=== PATIENT | male | born 2000 | race American Indian/Alaskan Native ===

== ENCOUNTER 2021-07-04 15:17 | Emergency (ER) | payer OTHER ==
--- NOTE | 2021-07-04 16:28 | XRay Report ---
XR chest routine 2V INDICATION / CLINICAL INFORMATION: cough fever COMPARISON: 08/02/2011 FINDINGS: SUPPORT DEVICES: None. HEART / MEDIASTINUM: No significant abnormality. LUNGS / PLEURA: Lungs are clear. Costophrenic sulci are sharp. No pneumothorax. ADDITIONAL FINDINGS: No significant additional findings. IMPRESSION: 1. No acute findings. Signer Name: Wade Pereira MD Signed: 07/04/2021 4:24 PM Workstation Name: [id number]
--- NOTE | 2021-07-04 17:41 | Emergency Department Report ---
ED General Adult HPI - General Chief complaint: Upper Respiratory Infection Stated complaint: CHEST PAIN/THROAT BODY ACHES Time Seen by Provider: 07/04/21 15:54 Source: patient Mode of arrival: Ambulatory Limitations: No Limitations - History of Present Illness Initial comments: Patient 21-year-old male who presents with and child for similar symptoms patient states he went to a concert 1 week ago and he and both developed URI symptoms concern for COVID. There is no fevers or chills there is however congestion head congestion productive cough that is clear. Symptoms are exacerbated by environmental exposure. Symptoms are relieved by nothing tried. Patient does not have history of asthma or bronchitis. There is been no fevers or chills to this point. Symptoms are rated at 4/10 for cough. Patient has not COVID vaccinated. Severity scale (0 -10): 0 - Related Data Home Medications Medication Instructions Recorded Confirmed Last Taken Albuterol Sulfate [Albuterol 0.63%] 0.63 mg IH TID PRN 07/05/13 07/04/21 05/30/13 Albuterol Sulfate [Ventolin HFA] 2 puff IH Q4H PRN 07/05/13 07/04/21 05/30/13 Methylphenidate HCl [Concerta] 54 mg PO QAM 07/05/13 07/04/21 07/05/13 08:00 Montelukast [Singulair] 10 mg PO QPM 07/05/13 07/04/21 05/28/13 Previous Rx's Medication Instructions Recorded Last Taken Type Albuterol Mdi (or & Nicu Only) 2 puff IH QID PRN #8.5 gram 07/04/21 Unknown Rx [ProAir HFA Inhaler] dexAMETHasone [Decadron] 4 mg PO BID 5 Days #10 tablet 07/04/21 Unknown Rx Allergies Allergy/AdvReac Type Severity Reaction Status Date / Time No Known Allergies Allergy Verified 07/04/21 16:25 ED Review of Systems ROS: Stated complaint: CHEST PAIN/THROAT BODY ACHES Other details as noted in HPI Constitutional: malaise. denies: chills, fever Eyes: denies: eye pain, eye discharge, vision change ENT: congestion. denies: ear pain, throat pain Respiratory: cough. denies: shortness of breath, wheezing Cardiovascular: denies: chest pain, palpitations Endocrine: no symptoms reported Gastrointestinal: denies: abdominal pain, nausea, vomiting, diarrhea Genitourinary: denies: urgency, dysuria Musculoskeletal: denies: back pain, joint swelling, arthralgia Skin: denies: rash, lesions Neurological: denies: headache, weakness, paresthesias, vertigo Psychiatric: denies: anxiety, depression Hematological/Lymphatic: denies: easy bleeding, easy bruising ED Past Medical Hx - Past Medical History Previous Medical History?: Yes Hx Asthma: Yes Additional medical history: adhd combination - Surgical History Past Surgical History?: No - Social History Smoking Status: Never Smoker Substance Use Type: None - Medications Home Medications: Home Medications Medication Instructions Recorded Confirmed Last Taken Type Albuterol Sulfate [Albuterol 0.63%] 0.63 mg IH TID PRN 07/05/13 07/04/21 05/30/13 History Albuterol Sulfate [Ventolin HFA] 2 puff IH Q4H PRN 07/05/13 07/04/21 05/30/13 History Methylphenidate HCl [Concerta] 54 mg PO QAM 07/05/13 07/04/21 07/05/13 08:00 History Montelukast [Singulair] 10 mg PO QPM 07/05/13 07/04/21 05/28/13 History Albuterol Mdi (or & Nicu Only) 2 puff IH QID PRN #8.5 gram 07/04/21 Unknown Rx [ProAir HFA Inhaler] dexAMETHasone [Decadron] 4 mg PO BID 5 Days #10 tablet 07/04/21 Unknown Rx ED Physical Exam - General Limitations: No Limitations General appearance: alert, in no apparent distress - Head Head exam: Present: normocephalic, normal inspection - Eye Eye exam: Present: normal appearance, EOMI Pupils: Present: normal accommodation - ENT ENT exam: Present: normal orophraynx, mucous membranes moist, TM's normal bilaterally, normal external ear exam - Expanded ENT Exam Expanded Throat exam: Positive: other (Uvula midline no exudate no lesions no stridor no wheezing ). Negative: tonsillar erythema, tonsillomegaly, tonsillar exudate, R peritonsillar mass, L peritonsillar mass - Neck Neck exam: Present: normal inspection - Respiratory Respiratory exam: Present: normal lung sounds bilaterally, chest wall tenderness (Anterior lateral generalized no crepitus no ecchymosis no step-off). Absent: respiratory distress, wheezes, rales, rhonchi, stridor - Cardiovascular Cardiovascular Exam: Present: regular rate, normal rhythm, normal heart sounds. Absent: systolic murmur, diastolic murmur, rubs, gallop - GI/Abdominal GI/Abdominal exam: Present: soft, normal bowel sounds. Absent: distended, tenderness - Rectal Rectal exam: Present: deferred - Extremities Exam Extremities exam: Present: normal inspection, full ROM, normal capillary refill - Back Exam Back exam: Present: normal inspection, full ROM. Absent: CVA tenderness (R), CVA tenderness (L) - Neurological Exam Neurological exam: Present: alert, oriented X3, CN II-XII intact, normal gait, reflexes normal. Absent: motor sensory deficit - Expanded Neurological Exam Expanded Patient oriented to: Present: person, place, time Speech: Present: fluid speech Motor strength exam: RUE: 5, LUE: 5, RLE: 5, LLE: 5 Best Eye Response ([place]): (4) open spontaneously Best Motor Response ([place]): (6) obeys commands Best Verbal Response ([place]): (5) oriented [place] Total: 15 - Psychiatric Psychiatric exam: Present: normal affect, normal mood - Skin Skin exam: Present: warm, dry, intact, normal color. Absent: rash ED Course Vital Signs 07/04/21 07/04/21 15:27 16:22 Temperature 99.0 F 98.7 F Pulse Rate 101 H 80 Respiratory 18 16 Rate Blood Pressure 142/66 Blood Pressure 119/68 [Right] O2 Sat by Pulse 97 100 Oximetry ED Medical Decision Making - Radiology Data Radiology results: report reviewed, image reviewed XR chest routine 2V INDICATION / CLINICAL INFORMATION: cough fever COMPARISON: 08/02/2011 FINDINGS: SUPPORT DEVICES: None. HEART / MEDIASTINUM: No significant abnormality. LUNGS / PLEURA: Lungs are clear. Costophrenic sulci are sharp. No pneumothorax. ADDITIONAL FINDINGS: No significant additional findings. IMPRESSION: 1. No acute findings. Signer Name: Wade Pereira MD Signed: 07/04/2021 4:24 PM Workstation Name: [id number] Transcribed By: IMANI Dictated By: Wade Pereira MD Electronically Authenticated By: Wade Pereira MD Signed Date/Time: 07/04/211623 DD/ 22 TD/TT: - Medical Decision Making Chest x-ray no opacities no infiltrates. ENT exam clear. Nasal drip mild sinus pain with palpation maxillary. Uvula midline airway is patent no exudate no lesions no stridor or wheezing. Lung sounds are clear throughout. Cough is productive clear plan treat for URI, follow-up primary care doctor in 2 to 3 days. Get COVID screening. Return to emergency should symptoms worsen. Critical care attestation.: If time is entered above; I have spent that time in minutes in the direct care of this critically ill patient, excluding procedure time. ED Disposition Clinical Impression: Viral illness URI (upper respiratory infection) Qualifiers: URI type: unspecified URI Qualified Code(s): J06.9 - Acute upper respiratory infection, unspecified Disposition: 01 HOME / SELF CARE / HOMELESS Is pt being admited?: No Does the pt Need Aspirin: No Condition: Stable Instructions: Viral Illness, Adult, Upper Respiratory Infection, Adult, [id number] Additional Instructions: Take medications as prescribed, hydrate as directed. Follow-up with your doctor in 2 to 3 days. Get COVID screening return to emergency department should symptoms worsen. Prescriptions: dexAMETHasone [Decadron] 4 mg PO BID 5 Days #10 tablet Albuterol Mdi (or & Nicu Only) [ProAir HFA Inhaler] 2 puff IH QID PRN #8.5 gram PRN Reason: Shortness Of Breath Referrals: ZULEIKA NAILS MD [Staff Physician] - 3-5 Days Forms: Work/School Release Form(ED) Time of Disposition: 17:45
[2021-07-04 18:37] VITALS: BP 124/78
== END 2021-07-04 18:36 | disposition home or self-care (01) ==
LOC: ED 15:17
DX: B34.9 Viral infection, unspecified (principal); J06.9 Acute upper respiratory infection, unspecified; J45.909 Unspecified asthma, uncomplicated; Z79.899 Other long term (current) drug therapy
CPT/HCPCS: 71046; 99283